=== PATIENT | female | born 1985 | race African-American/Black ===

== ENCOUNTER 2017-07-15 21:15 | Emergency (ER) | payer SELFPAY ==
[~2017-07-15] VITALS: Ht 160 cm; Wt 77.1 kg
[~2017-07-15 21:15] MED LIST: PREN-96 PO
[2017-07-15] MEDS ORDERED: diphenhdrAMINE HCL 50 MG/1 ML VL IV ONE (21:30)
[2017-07-15] MEDS ORDERED: FAMOTIDINE (10MG/ML) 2ML VL IV ONE (21:30)
[2017-07-15] MEDS ORDERED: SODIUM CHLORIDE 0.9% 1,000 ML IV ONE (21:30)
[2017-07-15] MEDS ORDERED: methylPREDNISolone SOD SUCC 125 MG/2 ML VL IV ONE (21:30)
[2017-07-15] MEDS ORDERED: methylPREDNISolone SOD SUCC 125 MG/2 ML VL ONE (21:36)
[2017-07-15 23:10] LABS: Urine RBC None Seen /hpf (0 - 4)
[2017-07-15 23:18] LABS: Urine Bilirubin Negative (Negative); Urine Blood Negative /uL (Negative); Urine Color Yellow (Yellow); Urine Glucose Normal (Normal); Urine Ketone Negative (Negative); Urine Mucus FEW (None Seen); Urine Nitrite Negative (Negative); Urine Squamous Epithelial Cell FEW /hpf (<5); Urine Urobilinogen Normal (Negative)
[2017-07-16 00:31] VITALS: BP 138/80
== END 2017-07-16 02:13 | disposition home or self-care (01) ==
LOC: ER 21:28
DX: L50.9 Urticaria, unspecified (principal); J45.909 Unspecified asthma, uncomplicated
CPT/HCPCS: 81001; 96361; 96374; 96375; 99285; J1200; J2930; J3490

== ENCOUNTER 2019-01-08 10:43 | Emergency (ER) | payer MEDICAID ==
[~2019-01-08] VITALS: Ht 160 cm; Wt 77.1 kg
[2019-01-08 10:46] VITALS: BP 130/90
[2019-01-08] MEDS ORDERED: methylPREDNISolone SOD SUCC 125 MG/2 ML VL IM ONE (11:00)
[2019-01-08] MEDS ORDERED: PROMETHAZINE W/CODEINE 5 ML ORAL SYRUP PO ONE (11:00)
[2019-01-08] MEDS ORDERED: ALBUTEROL SULF 2.5 MG/0.5ML(0.5%) NEB SOLN NEB ONE (11:00)
[2019-01-08] MEDS ORDERED: IPRATROPIUM BROM 0.5 MG/2.5ML INH SOL NEB ONE (11:00)
== END 2019-01-08 12:16 | disposition home or self-care (01) ==
LOC: ER 10:43
DX: J45.901 Unspecified asthma with (acute) exacerbation (principal); J20.9 Acute bronchitis, unspecified
CPT/HCPCS: 71046; 94640; 96372; 99283; J2930; J7611; J7644